=== PATIENT | male | born 1995 | race Caucasian/White ===

== ENCOUNTER → 2022-07-30 08:23 | Outpatient (BNVA) | payer OTHER, SELFPAY | PROVIDERS: PCP Pediatrics; Visit Provider Internal Medicine | DX: S67.191A Crushing injury of left index finger, initial encounter (principal); S60.122A Contusion of left index finger with damage to nail, initial encounter; W31.89XA Contact with other specified machinery, initial encounter | CPT/HCPCS: 11740; 73140; 99203 ==

== ENCOUNTER → 2022-08-01 13:53 | Outpatient (BNVA) | payer OTHER, SELFPAY | PROVIDERS: PCP Pediatrics; Visit Provider Internal Medicine | DX: S60.122A Contusion of left index finger with damage to nail, initial encounter (principal); W31.89XA Contact with other specified machinery, initial encounter | CPT/HCPCS: 99213 ==